=== PATIENT | female | born 1980 | race Caucasian/White ===

== ENCOUNTER → 2016-04-23 | Outpatient (CLI) | payer MEDICARE, MEDICAID ==
[~2016-04-23] MED LIST: DESYREL 100MG100 MG PO; MIRALAX17 GM PO; NORCO 325 MG-51 TA1 PO; ZOLOFT 100MG100 MG PO
== END ==
LOC: RAD 16:51
DX: M79.671 Pain in right foot (principal); S92.351A Displaced fracture of fifth metatarsal bone, right foot, initial encounter for closed fracture; X58.XXXA Exposure to other specified factors, initial encounter